=== PATIENT | female | born 1965 | race African-American/Black ===

== ENCOUNTER 2022-08-02 09:00 | Outpatient (REF) | payer OTHER, SELFPAY ==
[2022-08-02 10:56] LABS: Hematocrit 37.8 % (37.0-47.0); Hemoglobin 11.8 g/dl (12.0-16.0); Mean Corpuscular HGB Conc 31.2 g/dl (31.0-35.0); Mean Corpuscular Volume 89.6 fL (80.0-98.0); Platelet Count 139 X10*3/uL (160-400); Red Blood Count 4.22 X10*6/uL (4.20-5.50); Red Cell Distribution Width 12.8 % (11.0-16.0); White Blood Count 5.6 X10*3/uL (4.8-10.8)
[2022-08-02 11:28] LABS: Alanine Aminotransferase 15 U/L (0-31); Albumin Level 4.3 g/dL (3.5-5.0); Alkaline Phosphatase 88 U/L (39-117); Anion Gap 10 (12-20); Aspartate Amino Transferase 15 U/L (5-31); Bilirubin Total 0.7 mg/dL (0.0-1.0); Blood Urea Nitrogen 23 mg/dL (9-16); Calcium 9.1 mg/dL (8.4-10.2); Carbon Dioxide 29 mmol/L (22-29); Chloride 108 mmol/L (96-108); Cholesterol 219 mg/dL; Estimated Glomerular Filt Rate 24; Glucose Fasting 108 mg/dL (60-99); HDL Cholesterol 44 mg/dL; LDL Cholesterol Calculated 154 mg/dl; Potassium 4.1 mmol/L (3.3-5.1); Sodium 143 mmol/L (135-145); Total Protein 7.1 g/dL (6.5-8.0); Triglycerides 109 mg/dL
== END 2022-08-02 09:01 | disposition home or self-care (01) ==
LOC: HO.WFDLDS 09:00
PROVIDERS: Visit Provider Hospitalist
DX: Z00.00 Encounter for general adult medical examination without abnormal findings (principal)
CPT/HCPCS: 36415; 80053; 80061; 84443; 85027

== ENCOUNTER 2022-10-25 14:55 | Outpatient (AMB) | payer OTHER, SELFPAY ==
[2022-10-25 15:07] VITALS: BP 154/90; PULSE 74; RESP 12; TEMP 36.6; O2SAT 99
--- NOTE | 2022-10-25 15:07 | A.OFFPC_ITS ---
Vital Signs 10/25/22 15:07 10/25/22 16:03 Height 5 ft 5 in Weight 180 lb 6 oz BMI 30.0 BP 154/90 H 132/80 Blood Pressure Location Rt brachial Rt brachial Position Sitting Sitting Respiration 12 Pulse 74 Pulse Source Pulse Oximeter Temp 97.9 F Temp Source Temporal Artery Scan Pulse Oximetry (%) 99 Oxygen Delivery Method Room Air Intake Visit Reasons: follow up htn Pricing Lead Required: No Accompanied by: Self / Same As Patient Allergies No Known Allergies Allergy (Verified 10/25/22 15:21) Medication List - Last Reconciled 10/25/22 by Danielle Lopez CNP aspirin 81 mg PO DAILY blood pressure test kit-medium As directed carvedilol 25 mg PO BID 3 months lisinopril 5 mg PO BID Tobacco use date assessed: 08/02/22 Dental Screening Dental Screen Date: 10/25/22 Did you have a dental visit in the last 12 months?: No Did you have a dental problem in the last 6 months where you did not have access to dental care?: Yes HPI HPI Comments History of Present Illness Details 57-year-old female presents for hypertension follow-up She is on lisinopril and carvedilol which she notes she has been taking as prescribed She notes that she evaluated at [facility] ED on 10/13/2022 for right knee pain. She states she sustained the pain after knee twisted while climbing the stairs in her home. She was diagnosed with a ligament tear, was discharged home with instructions to take Tylenol and apply warm/cool compresses. 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 Jeremy Cam, Sunni Johnson, [place] and colleagues, with an educational mike from [employer]. Review of Systems Const Details: Const Denies chills, Denies fatigue, Denies fever(s), Denies headache(s) and Denies weakness ENT Denies change in vision, Denies dizziness, Denies headache(s), Denies hearing loss, Denies nasal congestion, Denies sinus pain, Denies sinus pressure and Denies sore throat Resp Denies cough, Denies dyspnea, Denies wheezing and Denies other (shortness of breath) Cardio Denies chest pain, Denies lightheadedness, Denies dyspnea and Denies other (palpitations) Neuro Denies dizziness, Denies headache(s), Denies numbness, Denies tingling and Denies weakness Musc Reports as per HPI Psych Denies anxiety, Denies depression, Denies memory?loss Endo Denies fatigue Aller/Immun Denies wheezing Physical exam (Primary Care) Vital Signs: Last Vital Signs Temp 97.9 F 10/25/22 15:07 Pulse 74 10/25/22 15:07 Resp 12 10/25/22 15:07 BP 154/90 H 10/25/22 15:07 Pulse Ox 99 10/25/22 15:07 Oxygen Delivery Method Room Air 10/25/22 15:07 BMI result Body Mass Index 30.0 Tobacco/Smoking Status: Tobacco use Status Tobacco use date assessed 08/02/22 10/25/22 15:15 Patient Tobacco Use Status Never used Tobacco 10/25/22 15:15 e-Cigarette/Vaping Use Never Used 10/25/22 15:15 Thrive Assessment: Date of Thrive Assessment Date Thrive assessed 06/07/22 10/25/22 15:15 Const Other: Const General: well developed; No acute distress Nutritional Appearance: well nourished Orientation/consciousness: patient oriented x3 HEENT Head: Yes normocephalic and Yes atraumatic Eyes General: appearance normal, both eyes and all related structures Pupils: Equal, round and reactive pupils present EOM: EOMs intact bilaterally Resp Effort & Inspection: normal respiratory effort Auscultation: clear to auscultation bilaterally Cardio Rate: regular rate Rhythm: regular rhythm Heart sounds: S1 normal heart sound present, S2 normal heart sound present, no gallops, no murmurs and no rubs Bruits: no abdominal aortic bruits and no carotid bruits Back/Spine/Pelvis Back: no CVA tenderness Cervical Spine: cervical ROM normal and No Cervical spine tenderness Thoracic/Lumbar Spine: thoraco-lumbar ROM normal, No pain with thoraco-lumbar ROM, No thoracic spinal tenderness and No lumbar spinal tenderness Extrem General: Yes normal to inspection, No edema and No calf tenderness Tenderness with palpation and flexion and extension of right knee Neuro General: patient oriented x3 and gait normal, no focal neuro deficit Cranial nerves: Yes Equal, round and reactive pupils present Psych Affect: normal affect Assessment and Plan Assessment & Plan (1) HTN, goal below 130/80: Code(s): I10 - Essential (primary) hypertension Plan: Resting blood pressure is 132/80, slightly above goal of less than 130/80 Continue to take carvedilol and lisinopril as prescribed Low-sodium diet encouraged Monitor blood pressure at least 3 times a week and reports blood pressure consistently above 130/80 Follow-up with PCP in 2 months or return sooner with symptoms or concerns Verbalized understanding and agreed with treatment plan. (2) Hypercholesterolemia: Code(s): E78.00 - Pure hypercholesterolemia, unspecified Plan: She had blood work done in July Her total cholesterol and LDL were slightly elevated, triglyceride and HDL were normal Her 10-year risk for ASCVD is 8.7% Advised to limit foods high in saturated fat and avoid foods high trans fat Routine exercise encouraged Will continue to monitor Follow-up with symptoms or concerns Verbalized understanding and agreed with treatment plan. (3) Right knee pain: Code(s): M25.561 - Pain in right knee Plan: She notes that she evaluated at [facility] ED on 10/13/2022 for right knee pain. She states she sustained the pain after knee twisted while climbing the stairs in her home. She was diagnosed with a ligament tear. Tenderness with palpation and flexion and extension of right knee Tylenol and warm/cool compresses as instructed PT referral made Follow-up with worsening or new symptoms Verbalized understanding and agreed with treatment plan (4) Abnormal laboratory test result: Code(s): R89.9 - Unspecified abnormal finding in specimens from other organs, systems and tissues Plan: BUN/creatinine and fasting glucose were elevated in July Elevated BUN and creatinine is likely due to kidney injury or dehydration CMP ordered Adequate hydration encouraged Advised to get fasting blood work done as soon as possible Will review lab results and make changes to her care plan if warranted Follow-up with PCP in 2 months or return sooner with symptoms or concerns Verbalized understanding and agreed with treatment plan. Orders: Orders Comprehensive [place]. Panel Fast Today R89.9 - Unspecified abnormal finding in specimens from other organs, systems and tissues PT Evaluation and Treatment Today M25.561 - Pain in right knee Coding Level of Care Code Est Pt Level 3 (61956) Diagnoses HTN, goal below 130/80 I10 Hypercholesterolemia E78.00 Right knee pain M25.561 Abnormal laboratory test result R89.9 Time Spent (min) 25
[2022-10-25 16:03] VITALS: BP 132/80
== END 2022-10-25 15:54 | disposition home or self-care (01) ==
PROVIDERS: Visit Provider Nurse Practitioner Family
DX: I10 Essential (primary) hypertension (principal); E78.00 Pure hypercholesterolemia, unspecified; M25.561 Pain in right knee; R89.9 Unspecified abnormal finding in specimens from other organs, systems and tissues
CPT/HCPCS: 99213

== ENCOUNTER 2023-01-15 15:22 | Outpatient (AMB) | payer OTHER, SELFPAY ==
--- NOTE | 2023-01-15 15:27 | MHC.PC.OV ---
Vital Signs 01/15/23 15:30 Height 5 ft 5 in Weight 179 lb 8 oz BMI 29.9 BP 148/80 H Blood Pressure Location Rt brachial Pulse 61 Pulse Source Pulse Oximeter Pulse Oximetry (%) 99 Oxygen Delivery Method Room Air Intake Visit Reasons: Follow up htn Intake Note: Patient is following up on hypertension today. Allergies No Known Allergies Allergy (Verified 01/15/23 15:31) Tobacco use date assessed: 01/15/23 Dental Screening Dental Screen Date: 01/15/23 Did you have a dental visit in the last 12 months?: No Did you have a dental problem in the last 6 months where you did not have access to dental care?: No Was dental information given to patient?: Yes HPI Follow up htn HPI Details Patient?presents?to?follow-up?hypertension. She?has?a?history?of?CVA?and?goal?is?less?than?130/80.??Blood?pressure?is?higher?than This?today. She?has been?prescribed?a?blood?pressure?monitor?but?has?not?picked?this?up. 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 Jeremy Cam, Sunni Johnson, [place] and colleagues, with an educational mike from [employer]. Review of Systems Const Denies chills, Denies fatigue, Denies fever(s), Denies headache(s) and Denies weakness Eyes Details: Vision?changes ENT Denies dizziness and Denies headache(s) Card Denies chest pain, Denies lightheadedness, Denies dyspnea and Denies other (Palpitations) Resp Denies cough, Denies dyspnea, Denies wheezing and Denies other ( shortness of breath) Musc Denies numbness and Denies tingling Neuro Denies dizziness, Denies headache(s), Denies numbness, Denies tingling, Denies paresthesias and Denies weakness Psych Denies anxiety and Denies depression Endo Denies fatigue Aller/Immun Denies wheezing Physical exam (Primary Care) Vital Signs: Last Vital Signs Pulse 61 01/15/23 15:30 BP 148/80 H 01/15/23 15:30 Pulse Ox 99 01/15/23 15:30 Oxygen Delivery Method Room Air 01/15/23 15:30 BMI result Body Mass Index 29.9 Tobacco/Smoking Status: Tobacco use Status Tobacco use date assessed 01/15/23 01/15/23 15:34 Patient Tobacco Use Status Never used Tobacco 01/15/23 15:29 e-Cigarette/Vaping Use Never Used 01/15/23 15:29 Thrive Assessment: Date of Thrive Assessment Date Thrive assessed 06/07/22 01/15/23 15:29 Const General: no acute distress and well developed Nutritional Appearance: well nourished Orientation/consciousness: patient oriented x3 HENMT Head: Yes normocephalic and Yes atraumatic Eyes General: appearance normal, both eyes and all related structures Pupils: Equal, round and reactive pupils present EOM: EOMs intact bilaterally Resp Effort & Inspection: normal respiratory effort Auscultation: clear to auscultation bilaterally Cardio Rate: regular rate Rhythm: regular rhythm Heart sounds: S1 normal heart sound present, S2 normal heart sound present, no gallops, no murmurs and no rubs Neuro General: patient oriented x3 and gait normal Cranial nerves: Yes Equal, round and reactive pupils present Psych Affect: normal affect Assessment and Plan Assessment & Plan (1) HTN, goal below 130/80: Code(s): I10 - Essential (primary) hypertension Plan: Hypertension?and?history?of?CVA.??Blood?pressure?is?too?high.??Goal?is?less?than?130/80 Increasing?lisinopril?and?continuing?carvedilol. She?has?not?picked?up?a?blood?pressure?monitor?and?I?refilled?her?script?and?printed?to?place?in?hand. (2) Hx of completed stroke: Code(s): Z86.73 - Personal history of transient ischemic attack (TIA), and cerebral infarction without residual deficits Plan: History?of?stroke. Controlled?blood?pressure Checking?lipids Continue?aspirin Orders: Orders Comprehensive [place]. Panel Fast Today Z00.00 - Encounter for general adult medical examination without abnormal findings Complete Blood Count Auto Diff Today Z00.00 - Encounter for general adult medical examination without abnormal findings Microalbumin, Random (w Creat) Today I10 - Essential (primary) hypertension UA and rflx microscopic Today Z00.00 - Encounter for general adult medical examination without abnormal findings TSH reflex Free T4 Today Z00.00 - Encounter for general adult medical examination without abnormal findings Lipid Panel Today Z00.00 - Encounter for general adult medical examination without abnormal findings Referrals Ophthalmology Referral H53.9 - Unspecified visual disturbance, I10 - Essential (primary) hypertension, Z86.73 - Personal history of transient ischemic attack (TIA), and cerebral infarction without residual deficits Medications: Changed From lisinopril hold for bp less than 100/50 5 mg PO BID 60 tabs 2RF I10 - Essential (primary) hypertension To lisinopril hold for bp less than 100/50 10 mg PO BID 180 tabs 2RF 90 days I10 - Essential (primary) hypertension Refilled blood pressure test kit-medium As directed 1 ea 0RF I10 - Essential (primary) hypertension blood pressure test kit-medium As directed 1 ea 0RF I10 - Essential (primary) hypertension Coding Level of Care Code Est Pt Level 3 (30037) Diagnoses HTN, goal below 130/80 I10 Hx of completed stroke Z86.73
[2023-01-15 15:30] VITALS: BP 148/80; PULSE 61; O2SAT 99; BMI 29.9
== END 2023-01-15 16:35 | disposition home or self-care (01) ==
PROVIDERS: PCP Hospitalist; Visit Provider Family Medicine
DX: I10 Essential (primary) hypertension (principal); Z86.73 Personal history of transient ischemic attack (TIA), and cerebral infarction without residual deficits
CPT/HCPCS: 99213

== ENCOUNTER 2023-02-28 13:49 | Outpatient (AMB) | payer OTHER, SELFPAY ==
--- NOTE | 2023-02-28 14:06 | A.OFFPC_ITS ---
Vital Signs 02/28/23 14:08 Height 5 ft 5 in Weight 178 lb BMI 29.6 BP 136/76 Blood Pressure Location Lt brachial Position Sitting Pulse 72 Pulse Source Pulse Oximeter Intake Visit Reasons: Extended Exam Intake Note: Patient is here for extended exam, and she was in [facility] on 02/15/2023 for stomach pains. Allergies No Known Allergies Allergy (Verified 02/28/23 14:09) Tobacco use date assessed: 02/28/23 HPI Extended Exam HPI Details 57 y/o female presents for a CPE with f/ u labs and health maintenance. No recent labs to review. Pt with hx of CVA had presented last office visit with increased blood pressure. Had continued carvedilol and increased lisinopril. Blood pressure today 136/76. She is on carvedilol 25mg b.i.d. and had been also put on hydralazine 25mg t.i.d. She has discontinued her lisinopril 10mg b.i.d. Re cent?emergency?department?presentation?on?02/15/2023?for?abdominal?pain.??Ultraso und?was?unremarkable?but?CT?abdomen?showed?enteritis with?low- grade?obstruction?secondary?to?this. She notes she is feeling better and has been eating better. 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 Jeremy Cam, Sunni Johnson, [place] and colleagues, with an educational mike from [employer]. Review of Systems Const Denies chills, Denies fatigue, Denies fever(s), Denies headache(s) and Denies weakness Eyes Denies change in vision ENT Denies dizziness, Denies headache(s), Denies hearing loss, Denies nasal congestion, Denies sinus pain, Denies sinus pressure and Denies sore throat Card Denies chest pain, Denies lightheadedness, Denies dyspnea and Denies other (palpitations) Resp Denies cough, Denies dyspnea and Denies wheezing GI Denies abdominal pain, Denies melena, Denies hematochezia, Denies change in bowel habits, Denies dyspepsia and Denies nausea Denies hematuria and Denies dysuria Musc Denies abnormal gait, Denies myalgias, Denies arthralgias, Denies numbness and Denies tingling Skin/Breast Denies rash, Denies unusual bruising and Denies wounds Neuro Denies abnormal gait, Denies dizziness, Denies headache(s), Denies memory loss, Denies numbness, Denies Sensory deficit (Neuro), Denies tingling and Denies weakness Psych Denies anxiety, Denies depression and Denies memory loss Endo Denies cold intolerance, Denies fatigue, Denies heat intolerance, Denies polydipsia and Denies polyuria Deepak/Lymph Denies easy bleeding and Denies easy bruising Aller/Immun Denies wheezing Physical exam (Primary Care) Vital Signs: Last Vital Signs Pulse 72 02/28/23 14:08 BP 136/76 02/28/23 14:08 BMI result Body Mass Index 29.6 Tobacco/Smoking Status: Tobacco use Status Tobacco use date assessed 02/28/23 02/28/23 14:15 Patient Tobacco Use Status Never used Tobacco 02/28/23 14:15 e-Cigarette/Vaping Use Never Used 02/28/23 14:15 Thrive Assessment: Date of Thrive Assessment Date Thrive assessed 06/07/22 02/28/23 14:15 Const General: no acute distress, well developed, alert and awake Nutritional Appearance: well nourished Orientation/consciousness: patient oriented x3 HENMT Head: Yes normocephalic and Yes atraumatic Ears: hearing grossly normal bilaterally and TM's normal bilaterally General nose exam: Normal external nose present and Normal nares present Mouth: Normal oral and palatal mucosa present and moist mucous membranes Teeth and gingiva: dentition normal Throat: Yes posterior oropharynx normal Eyes General: appearance normal, both eyes and all related structures Pupils: Equal, round and reactive pupils present and Pupil accommodation reflex normal EOM: EOMs intact bilaterally Neck Neck: Yes normal visual inspection, Yes no lymphadenopathy and Yes trachea midline Thyroid: Thyroid normal Carotids: no bruits Lymphatic: no lymphadenopathy noted Chest Chest palpation & inspection: normal inspection of the chest Resp Effort & Inspection: normal respiratory effort Auscultation: clear to auscultation bilaterally Cardio Rate: regular rate Rhythm: regular rhythm Heart sounds: S1 normal heart sound present, S2 normal heart sound present, no gallops, no murmurs and no rubs Bruits: no abdominal aortic bruits and no carotid bruits GI Palpation (GI): No Abdominal aortic bruit present, Soft to palpation, nontender, No hepatosplenomegaly present and No Rebound tenderness present Auscultation: normal bowel sounds General: Yes no CVA tenderness Back/Spine/Pelvis Back: no CVA tenderness Cervical Spine: cervical ROM normal and No Cervical spine tenderness Thoracic/Lumbar Spine: thoraco-lumbar ROM normal, No pain with thoraco-lumbar ROM, No thoracic spinal tenderness and No lumbar spinal tenderness Skin Lesions: no lesions Rashes: no rashes Trauma: no lacerations or abrasions Wounds: no wounds Nails: normal Neuro General: patient oriented x3 Cranial nerves: Yes Equal, round and reactive pupils present Cognition (Neuro): normal cognition Gait exam (Neuro): Normal gait present Motor exam (neuro): 5/5 motor strength present throughout Sensory Exam: No Sensory deficit (Neuro) Deep tendon reflexes (DTR's): Right patellar reflex intensity grade: 2+ and Left patellar reflex intensity grade: 2+ Extrem General: Yes normal to inspection and No edema Psych Appearance: grossly normal Affect: normal affect Attitude: cooperative Thought process: Normal thought process present Assessment and Plan Assessment & Plan (1) Adult general medical examination: Code(s): Z00.00 - Encounter for general adult medical examination without abnormal findings Plan: 57-year-old?female?presents?for?complete?physical?exam (2) HTN, goal below 130/80: Code(s): I10 - Essential (primary) hypertension Plan: Blood?pressure?is?fairly?well?controlled.??Goal?is?less?than?130/80 Patient?had?been?on?lisinopril?but?h as?renal?failure?and?recent?exacerbation?with?dehydration?during?hospital?admiss ion?for?enteritis. Lisinopril?was?discontinued?and?she?is?on?hydralazine?t.i.d. Continue?hydralazine If?renal?function? improves/stabilizes,?may?consider?a?small?dose?of?lisinopril?for?renal?protectio n (3) Hx of completed stroke: Code(s): Z86.73 - Personal history of transient ischemic attack (TIA), and cerebral infarction without residual deficits Plan: Stable (4) Abdominal pain: Code(s): R10.9 - Unspecified abdominal pain Plan: Recent?enteritis?and ileus Referred?to?Gastroenterology (5) Renal failure: Code(s): N19 - Unspecified kidney failure Plan: Check?labs Follow-up?with?nephrology (6) Screening for colon cancer: Code(s): Z12.11 - Encounter for screening for malignant neoplasm of colon Plan: Referred?to?GI (7) Breast cancer screening by mammogram: Code(s): Z12.31 - Encounter for screening mammogram for malignant neoplasm of breast Plan: Overdue?for?mammogram-ordered (8) Screening for cervical cancer: Code(s): Z12.4 - Encounter for screening for malignant neoplasm of cervix Plan: Overdue?for?Pap?smear-ordered (9) Vision changes: Code(s): H53.9 - Unspecified visual disturbance Plan: History?of?hypertension?and?CVA?with?some?comp laints?of?vision?changes?at?prior?visit. Had?referred?her?to?ophthalmology?but?the?wait?time?is?over?a?year. Referred?her?to?a?new?scrap carrier Orders: Orders MM tomosynthesis screening BI Today Z12.31 - Encounter for screening mammogram for malignant neoplasm of breast Referrals Ophthalmology Referral H53.9 - Unspecified visual disturbance, I10 - Essential (primary) hypertension, Z86.73 - Personal history of transient ischemic attack (TIA), and cerebral infarction without residual deficits Gastroenterology Referral K52.9 - Noninfective gastroenteritis and colitis, unspecified, Z12.11 - Encounter for screening for malignant neoplasm of colon PNEUMATIC [facility]ER Referral Z12.4 - Encounter for screening for malignant neoplasm of cervix Coding Level of Care Code Est Pt Level 3 (63727) Est Pt Prev Care 40-64y(96053) Diagnoses Adult general medical examination Z00.00 HTN, goal below 130/80 I10 Hx of completed stroke Z86.73 Abdominal pain R10.9 Renal failure N19 Screening for colon cancer Z12.11 Breast cancer screening by mammogram Z12.31 Screening for cervical cancer Z12.4 Vision changes H53.9
[2023-02-28 14:08] VITALS: BP 136/76; PULSE 72; BMI 29.6
== END 2023-02-28 14:47 | disposition home or self-care (01) ==
PROVIDERS: PCP Family Medicine; Visit Provider Family Medicine
DX: Z00.00 Encounter for general adult medical examination without abnormal findings (principal); I10 Essential (primary) hypertension; Z86.73 Personal history of transient ischemic attack (TIA), and cerebral infarction without residual deficits; R10.9 Unspecified abdominal pain; N19 Unspecified kidney failure; Z12.11 Encounter for screening for malignant neoplasm of colon; Z12.31 Encounter for screening mammogram for malignant neoplasm of breast; Z12.4 Encounter for screening for malignant neoplasm of cervix; H53.9 Unspecified visual disturbance
CPT/HCPCS: 99396

== ENCOUNTER 2023-03-02 09:18 | Outpatient (REF) | payer OTHER, SELFPAY ==
[2023-03-02 11:24] LABS: Hemoglobin 11.7 g/dl (12.0-16.0); Imm Gran Abs Auto 0.01 X10*3/uL (0.00-0.03); Imm Gran Pct Auto 0.2 % (0.0-0.4); Red Cell Distribution Width 12.4 % (11.0-16.0); SCAN SMEAR FLAG 1
[2023-03-02 11:26] LABS: Basophils Absolute Auto 0.1 X10*3/uL (0.0-0.2); Basophils Percent Auto 1.3 % (0-2); Eosinophils Absolute Auto 0.2 X10*3/uL (0.0-0.4); Eosinophils Percent Auto 4.8 % (0-4); Hematocrit 36.8 % (37.0-47.0); Lymphocytes Absolute Auto 1.7 X10*3/uL (1.2-4.9); Lymphocytes Percent Auto 36.1 % (20-40); Mean Corpuscular HGB Conc 31.8 g/dl (31.0-35.0); Mean Corpuscular Hemoglobin 28.5 pg (27.0-33.0); Mean Corpuscular Volume 89.8 fL (80.0-98.0); Monocytes Absolute Auto 0.3 X10*3/uL (0.1-1.2); Monocytes Percent Auto 5.9 % (2-11); Neutrophils Absolute Auto 2.5 x10*3/uL (2.0-8.3); Neutrophils Percent Auto 51.7 % (45-73); PLT CLUMP 1
[2023-03-02 11:27] LABS: MANUAL DIFF FLAG SCAN; PLT ABN DIST 1; White Blood Count 4.8 X10*3/uL (4.8-10.8)
[2023-03-02 11:28] LABS: Appearance Urine Clear; Color Urine Yellow; Glucose Urine UA Negative (Negative); Leukocyte Esterase Urine Small (1+) (Negative); Nitrite Urine Negative (Negative); Specific Gravity - Urine 1.015 (1.005-1.025); UMIC TRIGGER UA YES; Urine Blood Negative (Negative); Urine Ketones Negative (Negative); Urine Protein Negative (Neg-Trace)
[2023-03-02 11:40] LABS: Bacteria Urine None Seen (None Seen); Hyaline Casts Urine 0-2 /LPF (0-2); RBC Urine 0-2 /HPF (0-2); Squamous Epithelial Cell Urine 0-2 /HPF (0-2); WBC Urine 0-5 /HPF (0-5)
[2023-03-02 11:44] LABS: Platelet Count 150 X10*3/uL (160-400); SLIDE REVIEW VERIFIED
[2023-03-02 12:09] LABS: Creatinine Urine 163.83 mg/dL; Microalbum/Creatinine Ratio Ur 26.8 ug/mg cr (<30)
[2023-03-02 12:13] LABS: Alanine Aminotransferase 58 U/L (0-31); Albumin Level 4.2 g/dL (3.5-5.0); Alkaline Phosphatase 105 U/L (39-117); Anion Gap 11 (12-20); Aspartate Amino Transferase 45 U/L (5-31); Bilirubin Total 0.7 mg/dL (0.0-1.0); Blood Urea Nitrogen 26 mg/dL (9-16); Calcium 9.3 mg/dL (8.4-10.2); Carbon Dioxide 29 mmol/L (22-29); Chloride 106 mmol/L (96-108); Cholesterol 199 mg/dL (<200); Estimated Glomerular Filt Rate 25; Glucose Fasting 109 mg/dL (60-99); HDL Cholesterol 45 mg/dL (>40); LDL Cholesterol Calculated 133 mg/dL (<100); Potassium 4.5 mmol/L (3.3-5.1); Sodium 141 mmol/L (135-145); TSH reflex Free T4 1.34 uIU/mL (0.32-4.0); Total Protein 7.5 g/dL (6.5-8.0); Triglycerides 109 mg/dL (<150)
== END 2023-03-02 09:19 | disposition home or self-care (01) ==
LOC: HO.WFDLDS 09:18
PROVIDERS: Visit Provider Family Medicine
DX: Z00.00 Encounter for general adult medical examination without abnormal findings (principal); I10 Essential (primary) hypertension
CPT/HCPCS: 36415; 80053; 80061; 81001; 82043; 82570; 84443; 85025

== ENCOUNTER 2023-09-11 11:50 | Outpatient (AMB) | payer OTHER, SELFPAY ==
[2023-09-11 12:44] VITALS: BP 136/78; BMI 29.1
--- NOTE | 2023-09-11 12:44 | A.OFFVIS_ITS ---
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 No complaints. Last Pap/HPV was many years ago, the patient is status post hysterectomy for myomas and AUB with no history of abnormal Pap smear Last Mammogram was in 2019 Last Colonoscopy was in 2019, the recommendation according to the patient needs to repeat in 10 years, no records available [facility] Medical History Arthritis of both knees Hypotension Surgical History (Updated 09/11/23 @ 12:57 by Rojelio Cabrales MD) H/O: hysterectomy No pertinent past surgical history Family History Father Hypertension No family history of mental disorder Mother Hypertension No family history of mental disorder Social History Household Members: Family Household Members Other:: Sister Housing: House Alcohol intake: never Patient Tobacco Use Status: Never used Tobacco e-Cigarette/Vaping Use: Never Used service: No Current occupational status: employed 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 unsure date) Review of Systems Const All systems reviewed & are unremarkable except as noted in HPI and below Card Reports as per HPI and Reports no additional complaints Resp Reports as per HPI and Reports no additional complaints GI Reports as per HPI and Reports no additional complaints Reports as per HPI Physical Exam Vital Signs: Last Vital Signs BP 136/78 09/11/23 12:44 BMI result Body Mass Index 29.1 Const General: cooperative, healthy appearing and comfortable General: Yes bladder normal to palpation External Female Exam: No lesion Speculum Exam - Vagina: normal appearance of the vagina, normal vaginal discharge and not erythematous Speculum Exam - Cervix: Cervix absent Bimanual exam- vagina & uterus: bladder normal to palpation and uterus absent Bimanual Exam- Adnexa, other: Other (No masses detected) Assessment & Plan Assessment & Plan (1) Well woman exam: Code(s): Z01.419 - Encounter for gynecological examination (general) (routine) without abnormal findings Category: Medical Plan: Co testing but indicated, the patient is status post hysterectomy with no Pap history of cervical dysplasia Counseled the patient about the recommended dietary allowance of 1200 mg of Calcium & 600 IU of vitamin D. Mammogram ordered. The patient was instructed to perform monthly self-breast exams and schedule annual exam in a year. All questions answered and the patient verbalized understanding. Orders: Orders MM tomosynthesis screening BI Today Z12.31 - Encounter for screening mammogram for malignant neoplasm of breast Coding Level of Care Code New Pt Prev Care 40-64y(90341) Diagnoses Well woman exam Z01.419
== END 2023-09-11 13:03 | disposition home or self-care (01) ==
PROVIDERS: PCP Family Medicine; Visit Provider Obstetrics & Gynecology
DX: Z01.419 Encounter for gynecological examination (general) (routine) without abnormal findings (principal)
CPT/HCPCS: 99386

== ENCOUNTER → 2023-09-11 11:50 | Outpatient (BNVA) | payer OTHER, SELFPAY | PROVIDERS: PCP Family Medicine; Visit Provider Obstetrics & Gynecology ==

== ENCOUNTER 2024-08-15 09:01 | Outpatient (REF) | payer OTHER, SELFPAY ==
--- OUTSIDE RECORDS SUMMARY | 2024-08-15 09:29 | XMS_ITS | Patient Health Record ---
Author Organization [facility] Address [address] [place] [address] Care Team Providers Care Cloth Painter Name Role Phone Jsesica JEAN, [facility] Primary Care Provider Beatrice Duffy Unavailable [phone] Allergies No Known Allergies Reason For Referral No Information Medications Medication SIG (Take, Route, Frequency, Duration) Notes Start Date End Date Status amLODIPine Besylate 10 MG 1 tablet Orall y Once a day for 30 Unknown Aspirin 81 81 MG 1 tablet Orally Once a day Unknown Atorvastatin Calcium 10 MG 1 tablet Orally Once a day Unknown [facility] Pain Relief 500 MG 2 tablets as need ed Orally every 6 hrs 10 day Rx 07/01/2018 Unknown Metoprolol Succinate ER 25 MG 1 tablet Orally Once a day Unknown Social History Tobacco Use: Social History Observation Description Date Details (start date - stop date) Never Smoker NA - NA Tobacco Use: Question Answer Notes Status: Never tobacco user Problems Problem Type SNOMED Code ICD Code Onset Dates Problem Status W/U Status Risk Notes Problem 559282761 Chronic kidney disease (CKD) stage G4/A1, severely decreased glomerular filtration rate (GFR) between 15-29 mL/min/1.73 square meter and albuminuria creatinine ratio less than 30 mg/g (N18.4) Active confirmed Problem 18095564 Hypertensive chronic kidney disease with stage 1 through stage 4 chronic kidney disease, or unspecified chronic kidney disease (I12.9) Active confirmed Problem 43960102 Hypertension, unspecified type (I10) Active confirmed Plan Of Treatment Pending Test Test Name Order Date BMP (BASIC METABOL PANEL) 05/29/2018 Urine MICROALBUMIN RANDOM 05/29/2018 Microscopic Urinalysis 05/29/2018 CBC WITH PLATELET 11/18/2018 US Renal Kidney W Bladder 05/29/2018 Future Test Test Name Order Date BMP (BASIC METABOL PANEL) 02/18/2019 PHOSPHORUS 02/18/2019 PTH 02/18/2019 CBC WITH PLATELET 02/18/2019 Insurance Providers Payer Name Payer Address Payer Phone Subscriber Number Group Number Insured Name Patient Relationship to Insured Coverage Start Date Coverage End Date [facility] [address] [address] [place] [phone] [id number] Juan C Tobar Self - patient is the insured Medical (General) History Medical History History ICD Code Renal failure, unspecified chronicity N1 9 Hypertension, unspecified type I10 Cerebrovascular accident (CVA), unspecif ied mechanism I63.9 Surgical History Surgery Date(Month/Year) Hysterectomy 2010
--- OUTSIDE RECORDS SUMMARY | 2024-08-15 09:29 | XMS_ITS | Encounter Summary ---
Author Organization [facility] Address [address] [place] [address] Phone Care Team Providers Care Processing Talc And Borate Supervisor Name Role Phone Unavailable Primary Care Provider Unavailabl e Encounter Details Date Type Department Care Team (Late st Contact Info) Description 03/02/2023 Documentation Only [facility] [address] [place] [address] Arthur Doshi MD [address] [place] [address] Social History Tobacco Use Types Packs/Day Years Used Date Smoking Tobacco: Never Assessed Comments Unknown Sex and Gender Information Value Date Recorded Sex Assigned at Not on file Legal Sex Female 8:21 AM EST Gender Identity Not on file Sexual Orientation Not on file documented as of this encounter Plan of Treatment Not on file documented as of this encounter Visit Diagnoses Not on filedocumented in this encounter
--- OUTSIDE RECORDS SUMMARY | 2024-08-15 09:29 | XMS_ITS ---
Author Name [facility] Organization Unknown Care Team Organization Name Specialty Phone Email Start Date End [facility] JOYCE METZGER Primary Care 08/06/2024
--- OUTSIDE RECORDS SUMMARY | 2024-08-15 09:29 | XMS_ITS | Clinical Summary ---
Author Organization [facility] Address [address] [place] [address] Phone Care Team Providers Care Account Collector Name Role Phone Unavailable Primary Care Provider Unavailabl e Allergies No known active allergies Medications spironolactone (Aldactone) 25 MG tablet Take 1 tablet (25 mg total) by mouth 1 (one) time each day 30 tablet 11 03/05/2023 Active aspirin (ST OPAL) 81 MG EC tablet Take 81 mg by mouth 1 (one) time each day Active atorvastatin (LIPITOR) 20 MG tablet Take 20 mg by mouth at bed time 04/23/2023 Active lisinopril 10 MG tablet 05/11/2023 Active carvedilol (COREG) 25 MG tablet Take 1 tablet (25 mg total) by mouth in the morning and 1 tablet (25 mg total) in the evening. Take with meals. 60 tablet 3 05/28/2024 Active hydrALAZINE 25 MG tablet Take 1 tablet (25 mg total) by mouth in the morning and 1 tablet (25 mg total) in the evening and 1 tablet (25 mg total) before bedtime. 90 tablet 5 05/28/2024 Active Active Problems Problem Noted Date Diagnosed Date Stage 3b chronic kidney disease 03/02/2023 Hypertension 03/02/2023 Encounters Date Type Department Care Team Description 08/14/2024 Refill [facility] [address] [place] [address] Arthur Doshi MD 05/28/2024 Refill [facility] [place], [address] [place] [address] Arthur Doshi MD from Last 3 Months Immunizations Immunization Administration Dates Next Due Influenza, Quadrivalent, Preservative Free 01/18 Social History Tobacco Use Types Packs/Day Years Used Date Smoking Tobacco: Never Assessed Comments Unknown Sex and Gender Information Value Date Recorded Sex Assigned at Not on file Legal Sex Female 8:21 AM EST Gender Identity Not on file Sexual Orientation Not on file Plan of Treatment Health Maintenance Due Date Last Done Comments Breast Cancer Screening 1963 Pneumococcal Vaccine: 50+ Ye ars (1 of 2 - PCV) 1982 Colorectal Cancer Screening: Annual FOBT 2012 Colorectal Cancer Screening: Colonoscopy 2012 Colorectal Cancer Screening: Sigmoidoscopy 2012 Influenza Vaccine (Season Ended) 2024 01/19/20 21 Hepatitis B Vaccine Aged Out No longe r eligible based on patient's age to complete this topic
--- OUTSIDE RECORDS SUMMARY | 2024-08-15 09:30 | XMS_ITS | Encounter Summary ---
Author Organization [facility] Address [address] [place] [address] Phone Care Team Providers Care Fresh Foods Cake Decorator Name Role Phone Unavailable Primary Care Provider Unavailabl e Reason for Visit * Reason Comments Med Refill Encounter Details Date Type Department Care Team (Late st Contact Info) Description 08/14/2024 Refill [facility] [place], [address] [place] [address] Arthur Doshi MD [address] [place] [address] Social History Tobacco Use Types [...]
== END 2024-08-15 09:02 | disposition home or self-care (01) ==
LOC: HO.MAMMO 09:01
PROVIDERS: PCP Family Medicine; Visit Provider Family Medicine
DX: Z12.31 Encounter for screening mammogram for malignant neoplasm of breast (principal)
CPT/HCPCS: 77063; 77067

== ENCOUNTER → 2024-08-15 09:30 | Outpatient (BNV) | payer OTHER, SELFPAY | PROVIDERS: PCP Family Medicine; Visit Provider Internal Medicine | DX: Z12.31 Encounter for screening mammogram for malignant neoplasm of breast (principal) | CPT/HCPCS: 77063; 77067 ==

== ENCOUNTER 2024-09-15 10:59 | Outpatient (AMB) | payer OTHER, SELFPAY ==
--- NOTE | 2024-09-15 11:04 | A.OFFPC_ITS ---
Vital Signs 09/15/24 11:11 09/15/24 12:01 Height 5 ft 5 in Weight 180 lb BMI 30.0 BP 166/98 H 162/98 H Blood Pressure Location Lt brachial Position Sitting Pulse 76 Pulse Source Pulse Oximeter Temp 97.8 F Temp Source Temporal Artery Scan Pulse Oximetry (%) 97 Oxygen Delivery Method Room Air Intake Visit Reasons: cpe Intake Note: Juan C presents in the office today for her annual physical Allergies No Known Allergies Allergy (Verified 09/15/24 11:09) Tobacco use date assessed: 09/15/24 Dental Screening Dental Screen Date: 09/15/24 Did you have a dental visit in the last 12 months?: No Did you have a dental problem in the last 6 months where you did not have access to dental care?: No Was dental information given to patient?: Yes HPI HPI Comments History of Present Illness Details This is a 59-year-old female with a past medical history of chronic kidney disease, renal failure, hypertension, obesity, hyperlipidemia, CVA presenting for a physical exam. It is my 1st time seeing this patient. The patient's blood pressure today is 162/98. History of CVA. She is on atorvastatin and aspirin. She denies vision change, dizziness, numbness, tingling, headaches, chest pain or shortness of breath. Patient says her blood pressure is this high because she ran out of carvedilol week ago, and she could not get a refill because she had not been seen at the [facility] for over a year. She has a cocoa room operator, Dr. Doshi, but she is also overdue to follow up there. She says her last visit was about 6 months ago, and she is supposed to be seen every 3 months. Upon chart review from labs in 2022 her baseline creatinine is around 2 and GFR 25. She has a heart murmur on exam. Denies chest pain, shortness of breath or pedal edema. Patient is concerned she may have sleep apnea. Endorses daytime fatigue, non restorative sleep and waking up at night sometimes gasping for breath. She has been told that she snores heavily. She does not drink alcohol or smoke. Goes to bed at 08:00 and wakes up at 17:00. Endorses bilateral knee pain for 3-4 months. She also has intermittent bilateral knee swelling associated with the pain. It is in the inside of the knees. It is worse when she goes upstairs. Taking Tylenol temporarily alleviate symptoms. No history of trauma. Overdue for eye and dental exams. Patient says she saw OBGYN for her annual and Pap in 2024. Overdue for colonoscopy. She had a mammogram in August which was abnormal, and she has bilateral breast ultrasound scheduled this month. Denies breast pain or palpable masses. ROS: Constitutional: No unexplained weight loss, fever, chills, fatigue or night sweats. Eyes: No vision changes, blurry vision, double vision, eye pain, eye redness, eye discharge. ENT: No hearing loss, sneezing, congestion, runny nose or sore throat. Respiratory: No shortness of breath, cough or sputum production. Cardiovascular: No chest pain, chest pressure or chest discomfort. No p alpitations or pedal edema. Gastrointestinal: No anorexia, nausea, vomiting or diarrhea. No abdominal pain or blood in stool. Genitourinary: No dysuria, hematuria, urinary frequency. Neurologic: No headache, dizziness, syncope, unilateral weakness, ataxia, numbness or tingling in the extremities. Musculoskeletal: No muscle pain or back pain. See HPI. Hematologic/Lymphatics: No bleeding or bruising. No painful lymph nodes. Skin: No rash Endocrine: No cold or heat intolerance. No polyuria or polydipsia. Psychiatric: No depression or anxiety. No SI/HI. Physical exam: Constitutional: Alert, in no distress. Head: Normocephalic. Eyes: Pupils are equal, round and reactive to light. Extraocular muscles intact. Ear, Nose and Throat: Canals clear. TMs normal. Normal nasal mucosa. No nasal discharge. No oral lesions. Neck: Supple, Full range of motion. No lymphadenopathy. No palpable thyroid masses. Respiratory: Clear to auscultation. Breast: Patient declined residency director. No palpable masses or adenopathy bilaterally. Cardiovascular: S1 S2 regular. 2/6 systolic murmur. No carotid bruits. Gastrointestinal: Abdomen soft, non-tender, non-distended. Normal bowel sounds. No palpable masses. Neurologic: No focal neurological deficits. Symmetric patellar reflexes. Moves all extremities spontaneously. Sensation intact bilaterally. Skin: No rashes Knees: Bilateral knee crepitus. Full range of motion. Bilateral tenderness of the anteromedial compartments of the knees with mild edema on the left. No laxity. Normal gait. No warmth or redness. Extremities: Warm and well perfused. No clubbing, cyanosis or edema. Intact peripheral pulses bilaterally. Psychiatric: Normal mood and affect [facility] Medical History (Updated 09/15/24 @ 13:53 by FRANKLIN Flower) Abnormal mammogram Daytime somnolence Non-restorative sleep CKD stage 4 secondary to hypertension Heart murmur Routine physical examination Chronic kidney disease Bilateral knee pain Arthritis of both knees Hypotension Surgical History (Updated 09/11/23 @ 12:57 by Rojelio Cabrales MD) H/O: hysterectomy No pertinent past surgical history Family History Father Hypertension No family history of mental disorder Mother Hypertension No family history of mental disorder Social History (Updated 09/15/24 @ 11:[address] MA) Household Members: Family Household Members Other:: Sister Housing: House Alcohol intake: never Patient Tobacco Use Status: Never used Tobacco e-Cigarette/Vaping Use: Never Used Second Hand Smoke Exposure: No service: No Current occupational status: employed 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 Jeremy Cam, Sunni Johnson, [place] and colleagues, with an educational mike from [employer]. Physical exam (Primary Care) Vital Signs: Last Vital Signs Temp 97.8 F 09/15/24 11:11 Pulse 76 09/15/24 11:11 BP 162/98 H 09/15/24 12:01 Pulse Ox 97 09/15/24 11:11 Oxygen Delivery Method Room Air 09/15/24 11:11 BMI result Body Mass Index 30.0 Tobacco/Smoking Status: Tobacco use Status Tobacco use date assessed 09/15/24 09/15/24 11:17 Patient Tobacco Use Status Never used Tobacco 09/15/24 11:10 e-Cigarette/Vaping Use Never Used 09/15/24 11:10 Thrive Assessment: Date of Thrive Assessment Date Thrive assessed 06/07/22 09/15/24 11:07 Office Procedures EKG Details: EKG shows normal sinus rhythm with 70 beats per minute and left ventricular hypertrophy with repolarization abnormality. Reviewed with Dr. Rivero. [id number], Complete Coding Level of Care Code Est Pt Level 4 (73852) Est Pt Prev Care 40-64y(28035) Diagnoses Daytime somnolence R40.0 CKD stage 4 secondary to hypertension I12.9; N18.4 Non-restorative sleep G47.8 Heart murmur R01.1 Routine physical examination Z00.00 Bilateral knee pain M25.561; M25.562 Abnormal mammogram R92.8 HTN, goal below 130/80 I10 CPT Codes EKG - CPT: 63440-Uwgkqwgzzksopxicm, Complete ([id number]) Assessment & Plan Assessment & Plan (1) Daytime somnolence: Code(s): R40.0 - Somnolence Category: Medical Plan: Symptoms are concerning for sleep apnea. Sleep study ordered. Avoid sleeping supine. Continue to avoid alcohol. (2) CKD stage 4 secondary to hypertension: Code(s): I12.9 - Hypertensive chronic kidney disease with stage 1 through stage 4 chronic kidney disease, or unspecified chronic kidney disease; N18.4 - Chronic kidney disease, stage 4 (severe) Category: Medical Plan: Referred back to Nephrology urgently. Avoid nephrotoxic medications. Check renal function. (3) Non-restorative sleep: Code(s): G47.8 - Other sleep disorders Category: Medical (4) Heart murmur: Code(s): R01.1 - Cardiac murmur, unspecified Category: Medical Plan: Proceed with echocardiogram and we will consider referral to Cardiology once this is resulted. (5) Routine physical examination: Code(s): Z00.00 - Encounter for general adult medical examination without abnormal findings Category: Medical Plan: Patient is seen today for a routine physical. As part of this visit we reviewed the following issues, which are considered and essential part of preventative health in this age group: - Breast Cancer screening - Annual Caustic Loader exam - Screening for colon cancer - Cholesterol screening - Osteoporosis prevention including calcium/vitamin D intake, weight bearing exe rcise & smoking cessation - Nutritional and exercise counseling - Counseling of injury prevention including fire prevention, smoke alarms and seat belt usage - Screening for depression - Education about skin cancer - Recommendations about immunizations - Recommendation of an eye exam - Screening for substance abuse - Genetic cancer risk screening (6) Bilateral knee pain: Code(s): M25.561 - Pain in right knee; M25.562 - Pain in left knee Category: Medical Plan: Check x-rays and ordered Lyme serology. (7) Abnormal mammogram: Code(s): R92.8 - Other abnormal and inconclusive findings on diagnostic imaging of breast Category: Medical Plan: Proceed with additional imaging recommended by mammography. This is scheduled this month. (8) HTN, goal below 130/80: Code(s): I10 - Essential (primary) hypertension Category: Medical Plan: Restart carvedilol. Refills sent to pharmacy. Avoid caffeine. Follow low- sodium diet. Referred back to Nephrology. I also discussed the importance of her taking her medication consistently, and if she is going to run out of the medication again she should call us or her Nephrology office to speak with the provider. She was overdue for an appointment, but I would refill her medication if an appointment is booked so she does not run out in the meantime. Plan Return in 2 weeks for a blood pressure check. Orders: Orders Comprehensive Met. Panel Today D64.9 - Anemia, unspecified, E78.00 - Pure hypercholesterolemia, unspecified, N18.9 - Chronic kidney disease, unspecified, R74.8 - Abnormal levels of other serum enzymes, Z00.00 - Encounter for general adult medical examination without abnormal findings Lipid Panel Today D64.9 - Anemia, unspecified, E78.00 - Pure hypercholesterolemia, unspecified, N18.9 - Chronic kidney disease, unspecified, R74.8 - Abnormal levels of other serum enzymes, Z00.00 - Encounter for general adult medical examination without abnormal findings Lyme IgG/IgM w/reflex to WB Today M25.561 - Pain in right knee, M25.562 - Pain in left knee CA echo transthoracic complete Today I10 - Essential (primary) hypertension, R01.1 - Cardiac murmur, unspecified RT home sleep study Today G47.8 - Other sleep disorders, R40.0 - Somnolence XR Knee Kash 3V Today M25.561 - Pain in right knee, M25.562 - Pain in left knee Vitamin D 25-OH (D2 and D3) Today D64.9 - Anemia, unspecified, E78.00 - Pure hypercholesterolemia, unspecified, N18.9 - Chronic kidney disease, unspecified, R74.8 - Abnormal levels of other serum enzymes, Z00.00 - Encounter for general adult medical examination without abnormal findings Complete Blood Count no Diff Today D64.9 - Anemia, unspecified, E78.00 - Pure hypercholesterolemia, unspecified, N18.9 - Chronic kidney disease, unspecified, R74.8 - Abnormal levels of other serum enzymes, Z00.00 - Encounter for general adult medical examination without abnormal findings Microalbumin, Random (w Creat) Today D64.9 - Anemia, unspecified, E11.9 - Type 2 diabetes mellitus without complications, E78.00 - Pure hypercholesterolemia, unspecified, N18.9 - Chronic kidney disease, unspecified, R74.8 - Abnormal levels of other serum enzymes, Z00.00 - Encounter for general adult medical exam ination without abnormal findings TSH reflex Free T4 Today D64.9 - Anemia, unspecified, E78.00 - Pure hypercholesterolemia, unspecified, N18.9 - Chronic kidney disease, unspecified, R74.8 - Abnormal levels of other serum enzymes, Z00.00 - Encounter for general adult medical examination without abnormal findings Vitamin B12 Today Z91.89 - Other specified personal risk factors, not elsewhere classified IRON PROFILE Today D64.9 - Anemia, unspecified AMB EKG-In Office Today R01.1 - Cardiac murmur, unspecified Referrals Nephrology Referral I10 - Essential (primary) hypertension, I12.9 - Hypertensive chronic kidney disease with stage 1 through stage 4 chronic kidney disease, or unspecified chronic kidney disease, N18.4 - Chronic kidney disease, stage 4 (severe) Gastroenterology Referral Z12.11 - Encounter for screening for malignant neoplasm of colon Medications: Refilled carvedilol 25 mg PO BID 3 months 180 tabs 1RF atorvastatin 20 mg PO BEDTIME 90 days 90 tabs 1RF Patient Instructions: Please think about getting an updated tetanus immunization, Shingrix vaccine and the pneumonia vaccine. An annual seasonal influenza vaccine is also recommended.
[2024-09-15 11:11] VITALS: BP 166/98; PULSE 76; TEMP 36.6; O2SAT 97
[2024-09-15 12:01] VITALS: BP 162/98
--- OUTSIDE RECORDS SUMMARY | 2024-09-15 12:15 | XMS_ITS | Encounter Summary ---
Author Organization [facility] Address [address] [place] [address] Phone Care Team Providers Care Old Coin Dealer Name Role Phone Unavailable Primary Care Provider Unavailabl e Encounter Details Date Type Department Care Team (Late st Contact Info) Description 03/02/2023 Documentation Only [facility] [address] [place] [address] Arthur Doshi MD [address] [place] [address] Social History Tobacco Use Types [...]
== END 2024-09-15 12:13 | disposition home or self-care (01) ==
LOC: HO.HMCFM 11:02
PROVIDERS: PCP Family Medicine; Visit Provider Physician Assistant Medical
DX: R40.0 Somnolence (principal); I12.9 Hypertensive chronic kidney disease with stage 1 through stage 4 chronic kidney disease, or unspecified chronic kidney disease; N18.4 Chronic kidney disease, stage 4 (severe); G47.8 Other sleep disorders; R01.1 Cardiac murmur, unspecified; Z00.00 Encounter for general adult medical examination without abnormal findings; M25.561 Pain in right knee; M25.562 Pain in left knee; R92.8 Other abnormal and inconclusive findings on diagnostic imaging of breast; I10 Essential (primary) hypertension

== ENCOUNTER → 2024-09-15 10:59 | Outpatient (BNVA) | payer OTHER, SELFPAY | PROVIDERS: PCP Family Medicine; Visit Provider Physician Assistant Medical | DX: Z00.00 Encounter for general adult medical examination without abnormal findings (principal); E66.9 Obesity, unspecified; E78.5 Hyperlipidemia, unspecified; I12.9 Hypertensive chronic kidney disease with stage 1 through stage 4 chronic kidney disease, or unspecified chronic kidney disease; N18.4 Chronic kidney disease, stage 4 (severe); G47.8 Other sleep disorders; R01.1 Cardiac murmur, unspecified; M25.561 Pain in right knee; M25.562 Pain in left knee; R92.8 Other abnormal and inconclusive findings on diagnostic imaging of breast; D63.1 Anemia in chronic kidney disease; E78.00 Pure hypercholesterolemia, unspecified; R74.8 Abnormal levels of other serum enzymes; Z86.73 Personal history of transient ischemic attack (TIA), and cerebral infarction without residual deficits; Z68.30 Body mass index [BMI] 30.0-30.9, adult | CPT/HCPCS: 36415; 80053; 80061; 82043; 82306; 82570; 82607; 83540; 84443; 85027; 86618; 93005; 99212; 99396 ==

== ENCOUNTER 2024-09-15 12:25 | Outpatient (REF) | payer OTHER, SELFPAY ==
[2024-09-15 14:38] LABS: Hematocrit 37.1 % (37.0-47.0); Hemoglobin 12.3 g/dl (12.0-16.0); Mean Corpuscular HGB Conc 33.2 g/dl (31.0-35.0); Mean Corpuscular Hemoglobin 28.5 pg (27.0-33.0); Mean Corpuscular Volume 86.1 fL (80.0-98.0); Mean Platelet Volume 13.1 fL (9.4-12.3); PLT CLUMP 1; Red Blood Count 4.31 X10*6/uL (4.20-5.50); Red Cell Distribution Width 13.3 % (11.0-16.0)
[2024-09-15 14:47] LABS: Alanine Aminotransferase 23 U/L (0-31); Albumin Level 4.4 g/dL (3.5-5.0); Alkaline Phosphatase 120 U/L (39-117); Anion Gap 12 (12-20); Aspartate Amino Transferase 23 U/L (5-31); Bilirubin Total 0.5 mg/dL (0.0-1.0); Blood Urea Nitrogen 28 mg/dL (9-16); Calcium 9.5 mg/dL (8.4-10.2); Carbon Dioxide 27 mmol/L (22-29); Chloride 109 mmol/L (96-108); Cholesterol 214 mg/dL (<200); Estimated Glomerular Filt Rate 24; Glucose Random 90 mg/dL (60-115); HDL Cholesterol 43 mg/dL (>40); Iron 76 mcg/dL (30-160); LDL Cholesterol Calculated 139 mg/dL (<100); Percent Iron Saturation 27 % (15-50); Potassium 3.6 mmol/L (3.3-5.1); Sodium 144 mmol/L (135-145); Total Iron Binding Capacity 285 mcg/dL (228-428); Total Protein 7.8 g/dL (6.5-8.0); Triglycerides 160 mg/dL (<150); Unsaturated Iron Binding 209 ug/dL
[2024-09-15 14:55] LABS: Platelet Count 162 X10*3/uL (160-400)
[2024-09-15 14:58] LABS: Creatinine Urine 168.22 mg/dL
[2024-09-15 15:06] LABS: Vitamin B12 513 pg/mL (200-900)
[2024-09-15 15:10] LABS: TSH reflex Free T4 1.35 uIU/mL (0.32-4.0)
[2024-09-15 16:02] LABS: Microalbum/Creatinine Ratio Ur 409.5 ug/mg cr (<30)
[2024-09-16 05:48] LABS: Lyme Abs Screen <0.90 index
[2024-09-18 13:14] LABS: Vitamin D 25-OH, D2 <4 ng/mL; Vitamin D 25-OH, D3 17 ng/mL; Vitamin D 25-OH, Total 17 ng/mL (30-100)
== END 2024-09-15 12:26 | disposition home or self-care (01) ==
LOC: HO.WFDLDS 12:25
PROVIDERS: Visit Provider Physician Assistant Medical
DX: Z13.89 Encounter for screening for other disorder (principal)
CPT/HCPCS: 36415; 80053; 80061; 82043; 82306; 82570; 82607; 83540; 84443; 85027; 86617; 86618

== ENCOUNTER 2024-11-11 08:42 | Outpatient (REF) | payer OTHER, SELFPAY ==
--- NOTE | ~2024-11-11 | XR_ITS ---
EXAMINATION: XR KNEE 3 VIEWS BILATERAL HISTORY: bilateral knee pain COMPARISON: There are no prior studies available for comparison. FINDINGS: Standing AP views of both knees and additional lateral and sunrise patellar views of the bilateral knees are submitted. Osseous mineralization is normal. There is no fracture or dislocation. There is mild degenerative change of the medial compartment of the left knee and the patellofemoral compartment of the right knee with osteophyte formation. A calcification adjacent to the medial femoral condyle of the right knee may be related to the medial collateral ligament. There is no joint effusion. XR/XR Knee Kash 3V IMPRESSION: 1. Mild degenerative change of the medial compartment of the left knee and the patellofemoral compartment of the right knee. 2. Probable calcification of the origin of the medial collateral ligament of the right knee. Electronically signed by: Jeremy Andrew MD 11/11/2024 10:52 AM EDT
--- NOTE | ~2024-11-11 | US_ITS ---
EXAMINATIONS: 1. MM DIAGNOSTIC DIGITAL BREAST TOMOSYNTHESIS, BILATERAL 2. Targeted ultrasound of the left breast CLINICAL INFORMATION: Callback from screening for bilateral findings: Right: Oval mass in the anterior to middle depth on the CC view Left: Oval mass in the upper outer quadrant anterior depth and asymmetry in the retroareolar medial depth on the CC view. COMPARISON: Comparison made to multiple prior, most recent screening from August 15, 2024, and most remote bilateral diagnostic mammogram June 14, 2018 at outside facility. TECHNIQUE: Digital breast tomosynthesis is performed in full field ML 90 degrees view along with computer-aided detection (CAD). Synthesized 2D images are generated from the tomosynthesis. Spot compression tomosynthesis images were also obtained. FINDINGS: BREAST COMPOSITION: There are scattered areas of fibroglandular density (ACR BI-RADS breast composition Category b). RIGHT BREAST: Previously described 0.6 cm oval mass persists in the medial breast on the CC view at about 4 cm from the nipple (spot CC 28/54) . The size and appearance are similar to prior studies as far back as 2019 and can be considered benign finding. LEFT BREAST: - Approximately 0.6 cm mass in the upper-outer quadrant at about 3-4 cm from the nipple persists on today's images (ML90 degrees 9/15 and spot CC 15/54). Targeted ultrasound was performed at the location of the mammographic finding. The survey shows a 0.5 x 0.4 x 0.4 cm simple appearing cyst at 2:00 at 4 cm from the nipple. No internal vascularity demonstrated with color Doppler evaluation. - Approximately 0.5 cm oval mass is identified in the central breast/12 o'clock position at about 6 to 7 cm from the nipple (ML 90 degrees 27/50, CC 25/54). Targeted ultrasound was performed at the location of the mammographic finding. The survey shows a 0.4 x 0.3 x 0.3 cm hypoechoic lesion at 12 o'clock position 7 cm from the nipple, which could represent a complicated cyst or solid mass. US/US breast LT limited mamm only IMPRESSION: RIGHT BREAST: Oval mass, stable from 2019. Benign, no mammographic evidence of malignancy. Normal interval follow-up is recommended in 12 months from the original date. LEFT BREAST: 1. Simple cyst at 2:00 at 4 cm from the nipple. Benign finding. No dedicated imaging follow-up is needed. 2. Complicated cyst or solid mass at 12:00 at 7 cm from the nipple, correlating with the mammographic finding. Probably benign. A 6-month follow-up mammogram and ultrasound is recommended. ASSESSMENT: BI-RADS 3 - Probably benign finding(s) - 6 month follow-up suggested RECOMMENDATION: 6 Month F/U Results were provided to the patient at time of visit by the technologist. This patient's information was entered into a reminder system with a target due date for their next mammogram. Electronically signed by: Dee Zabala MD 11/11/2024 10:27 AM EDT
--- OUTSIDE RECORDS SUMMARY | 2024-11-11 09:00 | XMS_ITS | Encounter Summary ---
Author Organization [facility] Address [address] [place] [address] Phone Care Team Providers Care Box Car Checker Name Role Phone Unavailable Primary Care Provider Unavailabl e Encounter Details Date Type Department Care Team (Late st Contact Info) Description 03/02/2023 Documentation Only [facility] [address] [place] [address] Arthur Doshi MD [address] [place] [address] Social History Tobacco Use Types [...]
--- OUTSIDE RECORDS SUMMARY | 2024-11-11 09:00 | XMS_ITS | Patient Health Record ---
Author Organization [facility] enter Address [address] [place], [place] [address] Care Team Providers Care Cobol Programmer Name Role Phone Eliza Carcamo MD Primary Care Provider Allergies No Known Allergies Reason For Referral No Information Medications Medication SIG (Take, Route, Frequency, Duration) Notes Start Date End Date Status hydrALAZINE 50 mg 1 tab(s) orally 4 times a day; Duration: 90 days 11/08/2019 Active amLODIPine 10 mg 1 tab(s) orally once a day; Duration: 90 days Active carvedilol 25 mg 1 tab(s) orally 2 times a day; Duration: 90 days 01/20/2021 Active ergocalciferol 50,000 intl units 1 cap(s) orally once a week; Duration: 30 day(s) 09/27/2021 Active aspirin 81 mg 1 tab(s) orally once a day; Duration: 90 days RX Written BY: Constance Lopez RX Sent BY: Tomeka Linares CphT Active Immunizations Vaccine Route Administration Date Status Comme nts Pneumococcal (PPV23) Adult IM Intramuscular 01/20/2019 Adm inistered Influenza (19y+) (Fluzone) IM Intramuscular 01/20/2019 Adm inistered Influenza (19y+) (Flucelvax) IM Intramuscular 01/09/2020 Administered COVID-19 (Pfizer Monoval.) #1 (>11y) Unknown 07/24/2020 Administered COVID-19 (Pfizer Monoval.) #2 (>11y) Unknown 08/14/2020 Administered Tdap (19y+) (Adacel) IM Intramuscular 09/27/2020 Administe red COVID-19 (Moderna Monoval.) (>17y) Low Dose Booster IM Intramuscular 09/26/2021 Administered Problems Problem Type SNOMED Code ICD Code Onset Dates Problem Status W/U Status Risk Notes 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 Will order PTH, Ca, phos, magnesium and celiac disease. Problem Stroke (248546903) Stroke (I63.9) Active confir med Stable Problem Gingivitis (60534078) Gingivitis (K05.10) Active confirmed Resolved. Problem Left knee pain (312638554096715) Left knee pain (M25.562) Active confirmed sport cream, tylenol as needed/prescr ibed. Problem Obesity (286993077) Obesity (E66.9) Active conf irmed Problem Hyperlipidemia (08169004) Hyperlipidemia (E78.5) Active confirmed Increasing Atorvastatin to 40mg daily. Problem Renal failure (64527625) Renal failure (N19) Active confirmed Being followed with specialist. Dr. Nick, the insurance loss adjuster. Check labs today. Problem Hypertension (48485284) HTN (hypertension) (I10) Active confirmed Refill all three medications. Patient is adviced to take all medications. If has any fever, chills, chest pain, sob, headache, weakness, numbness, tingling to call 911. She also needs to get to new PCP near where she lives now as soone as possible. Problem hypercholesterolemi a (disorder) (07657840) Hypercholesterem ia (E78.00) Active confirmed repeat lipid profile today. Plan Of Treatment No Information Medical (General) History Medical History History ICD Code Hypertension stroke April of 2017. Affecting her ri ght eye only Surgical History Surgery Date(Month/Year) Total Hysterectomy-in [place] 2010 Hospitalization History Reason Date(Month/Year) Stroke 04/2017
--- OUTSIDE RECORDS SUMMARY | 2024-11-11 09:00 | XMS_ITS ---
Author Name [facility] Organization Unknown Care Team Organization Name Specialty Phone Email Start Date End [facility] JOYCE METZGER Primary Care 08/06/2024 10/21/2024
--- OUTSIDE RECORDS SUMMARY | 2024-11-11 09:00 | XMS_ITS | Patient Health Record ---
Author Organization [facility] Address [address] [place] [address] Care Team Providers Care Trash Collector Name Role Phone Jessica JEAN, [facility] Primary Care Provider Beatrice Duffy Unavailable [phone] Allergies No Known Allergies Reason For Referral No Information Medications Medication SIG (Take, Route, Frequency, Duration) Notes Start Date End Date Status amLODIPine Besylate 10 MG Tablet 1 tablet Orally Once a day; Duration: 30 Unknown Aspirin 81 81 MG Tablet Delayed Release 1 tablet Orally Once a day Unknown Atorvastatin Calcium 10 MG Tablet 1 tablet Orally Once a day Unknown [facility] Pain Relief 500 MG Tablet 2 tablets as needed Orally every 6 hrs 10 day Rx 07/01/2018 Unknown Metoprolol Succinate ER 25 MG Tablet Extended Release 24 Hour 1 tablet Orally Once a day Unknown Social History Tobacco Use: Social History Observation Description Date Details (start date - stop date) Never Smoker NA - NA Social History Tobacco Use: Social Info Question Answer Notes Tobacco Use: Date tobacco status assessed 04/20/2021 Status: Never tobacco user Tobacco Exposure Secondhand smoke exposure Additional Details Category Social Info Options Details Miscellaneous: 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 Problems Problem Type SNOMED Code ICD Code Onset Dates Problem Status W/U Status Risk Notes Problem Chronic kidney disease stage 4 (474118058) Chronic kidney disease (CKD) stage G4/A1, severely decreased glomerular filtration rate (GFR) between 15-29 mL/min/1.73 square meter and albuminuria creatinine ratio less than 30 mg/g (N18.4) Active confirmed Problem Chronic kidney disease due to hypertension (742902218031537 ) Hypertensive chronic kidney disease with stage 1 through stage 4 chronic kidney disease, or unspecified chronic kidney disease (I12.9) Active confirmed Problem Essential hypertension (16041862) Hypertension, unspecified type (I10) Active confirmed Plan [...] Insured Coverage Start Date Coverage End Date [facility] [address] [address] [place] [id number] Juan C Tobar Self - patient is the insured Medical (General) History Medical History History ICD Code Renal failure, unspecified chronicity N1 9 Hypertension, unspecified type I10 Cerebrovascular accident (CVA), unspecif ied mechanism I63.9 Surgical History Surgery Date(Month/Year) Hysterectomy 2010
== END 2024-11-11 08:43 | disposition home or self-care (01) ==
LOC: HO.MAMMO 08:42
PROVIDERS: Absent Provider Physician Assistant Medical; PCP Family Medicine; Visit Provider Family Medicine
DX: M25.561 Pain in right knee (principal); M25.562 Pain in left knee; N63.21 Unspecified lump in the left breast, upper outer quadrant; Z12.31 Encounter for screening mammogram for malignant neoplasm of breast
CPT/HCPCS: 73562; 76642; 77062; 77066

== ENCOUNTER → 2024-11-11 09:00 | Outpatient (BNV) | payer OTHER, SELFPAY | PROVIDERS: Absent Provider Physician Assistant Medical; PCP Family Medicine; Visit Provider Radiology Body Imaging | DX: N60.02 Solitary cyst of left breast (principal); R92.323 Mammographic fibroglandular density, bilateral breasts; M17.0 Bilateral primary osteoarthritis of knee | CPT/HCPCS: 73562; 76642; 77062; 77066 ==

== ENCOUNTER → 2024-12-09 14:33 | Outpatient (REF) | payer OTHER, SELFPAY ==
--- OUTSIDE RECORDS SUMMARY | 2024-12-09 15:31 | XMS_ITS | Clinical Summary ---
Author Organization [facility] Address [address] [place] [address] Phone Care Team Providers Care Frozen Pie Maker Name Role Phone Unavailable Primary Care Provider [...] Active lisinopril 10 MG tablet 05/11/2023 Active hydrALAZINE 25 MG tablet Take 1 tablet (25 mg total) by mouth in the morning and 1 tablet (25 mg total) in the evening and 1 tablet (25 mg total) before bedtime. 90 tablet 5 05/28/2024 Active carvedilol (COREG) 25 MG tablet Take 1 tablet (25 mg total) by mouth in the morning and 1 tablet (25 mg total) in the evening. Take with meals. 180 tablet 3 08/20/2024 Active Active Problems Problem Noted Date Diagnosed Date Stage 3b chronic kidney disease 03/02/2023 Hypertension 03/02/2023 Encounters Date Type Department Care Team Description 11/26/2024 Documentation Only [facility] [place], [address] [place] [address] Josie Bynum from Last 3 Months Immunizations Immunization Administration Dates Next Due Influenza, Quadrivalent, Preservative Free 01/18 Social History Tobacco Use Types Packs/Day Years Used Date Smoking Tobacco: Never Assessed Comments Unknown Sex and Gender Information Value Date Recorded Sex Assigned at Not on file Legal Sex Female 8:21 AM EST Gender Identity Not on file Sexual Orientation Not on file Plan of Treatment Upcoming Encounters Date Type Department Care Team (Late st Contact Info) Description 02/02/2025 4:00 PM EDT Office Visit [facility] [place], [address] [place] [address] Arthur Doshi MD [address] [facility] [place] [address] Health Maintenance Due Date Last Done Comments Breast Cancer Screening 1965 Colorectal Cancer Screening: Annual FOBT 2012 Colorectal Cancer Screening: Colonoscopy 2012 Colorectal Cancer Screening: Sigmoidoscopy 2012 Pneumococcal Vaccine: 50+ Years (2 of 2 - PCV) 01/21/2020 01/20/2019 Influenza Vaccine (#1) 2024 1, 01/09/2020, 01/20/2019 Pneumococcal Vaccine: Peds ( 0 to 5 Years) and At-Risk Patients (6 to 49 Years) Discontinued 01/20/2019 Hepatitis B Vaccine Aged Out No longe r eligible based on patient's age to complete this topic
--- OUTSIDE RECORDS SUMMARY | 2024-12-09 15:31 | XMS_ITS | Encounter Summary ---
Author Organization [facility] Address [address] [place] [address] Phone Care Team Providers Care Director State Pharmacy Name Role Phone Unavailable Primary Care Provider Unavailabl e Encounter Details Date Type Department Care Team (Late st Contact Info) Description 11/26/2024 Documentation Only [facility] [address] [place] [address] Josie Bynum [address] [place] [address] Social History Tobacco Use Types Packs/Day Years Used Date Smoking Tobacco: Never Assessed Comments Unknown Sex and Gender Information Value Date Recorded Sex Assigned at Not on file Legal Sex Female 8:21 AM EST Gender Identity Not on file Sexual Orientation Not on file documented as of this encounter Plan of Treatment Upcoming Encounters Date Type Department Care Team (Late st Contact Info) Description 02/02/2025 4:00 PM EDT Office Visit [facility] [address] [place] [address] Arthur Doshi MD [address] [place] [address] [place] [phone] documented as of this encounter Visit Diagnoses Not on filedocumented in this encounter
--- OUTSIDE RECORDS SUMMARY | 2024-12-09 15:31 | XMS_ITS | Encounter Summary ---
Author Organization [facility] Address [address] [place] [address] Phone Care Team Providers Care Teasel Setter Name Role Phone Unavailable Primary Care Provider Unavailabl e Encounter Details Date Type Department Care Team (Late st Contact Info) Description 03/02/2023 Documentation Only [facility] [address] [place] [address] Arthur Doshi MD [address] [facility] [place] [address] Social History Tobacco Use Types [...] Visit [facility] [address] [place] [address] Arthur Doshi MD [address] [facility] [place] [address] documented as of this encounter Visit Diagnoses Not on filedocumented in this encounter
--- OUTSIDE RECORDS SUMMARY | 2024-12-09 15:31 | XMS_ITS | Patient Health Record ---
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 Will order PTH, Ca, phos, magnesium and celiac disease. Problem Stroke (739489371) Stroke (I63.9) Active confir med Stable Problem Gingivitis (67895637) Gingivitis (K05.10) Active confirmed Resolved. Problem Left knee pain (573690328759681) Left knee pain (M25.562) Active confirmed sport cream, tylenol as needed/prescr ibed. Problem Obesity (504478719) Obesity (E66.9) Active conf irmed Problem Hyperlipidemia (96426367) Hyperlipidemia (E78.5) Active confirmed Increasing Atorvastatin to 40mg daily. Problem Renal failure (32995879) Renal failure (N19) Active confirmed Being followed with specialist. Dr. Nick, the instructor hairspring. Check labs today. Problem Hypertension (28905298) HTN (hypertension) (I10) Active confirmed Refill all three medications. Patient is adviced to take all medications. If has any fever, chills, chest pain, sob, headache, weakness, numbness, tingling to call 911. She also needs to get to new PCP near where she lives now as soone as possible. Problem hypercholesterolemi a (disorder) (10685119) Hypercholesterem ia (E78.00) Active confirmed repeat lipid profile today. Plan Of Treatment No Information Medical (General) History Medical History History ICD Code Hypertension stroke April of 2017. Affecting her ri ght eye only Surgical History Surgery Date(Month/Year) Total Hysterectomy-in [place] 2010 Hospitalization History Reason Date(Month/Year) Stroke 04/2017
--- OUTSIDE RECORDS SUMMARY | 2024-12-09 15:32 | XMS_ITS | Encounter Summary ---
Author Organization [facility] Address [address] [place] [address] Phone Care Team Providers Care Monotyper Name Role Phone Unavailable Primary Care Provider Unavailabl e Reason for Visit * Reason Comments Med Refill Encounter Details Date Type Department Care Team (Late st Contact Info) Description 08/14/2024 Refill [facility] [address] [place] [address] Arthur Doshi MD [address] [place] [address] [place] [address] Social History Tobacco Use Types [...] Visit [facility] [address] [place] [address] Arthur Doshi MD [address] [facility] [place] [address] documented as of this encounter Visit Diagnoses Not on filedocumented in this encounter
--- OUTSIDE RECORDS SUMMARY | 2024-12-09 15:32 | XMS_ITS | Patient Health Record ---
Author Organization [facility] Address [address] [place] [address] Care Team Providers Care Media Buyer Name Role Phone Jessica JEAN, Juhi Primary Care Provider Beatrice Duffy Unavailable [phone] Allergies No Known Allergies Reason For Referral [...] Notes Problem Chronic kidney disease stage 4 (046438626) Chronic kidney disease (CKD) stage G4/A1, severely decreased glomerular filtration rate (GFR) between 15-29 mL/min/1.73 square meter and albuminuria creatinine ratio less than 30 mg/g (N18.4) Active confirmed Problem Chronic kidney disease due to hypertension (420708724373619 ) Hypertensive chronic kidney disease with stage 1 through stage 4 chronic kidney disease, or unspecified chronic kidney disease (I12.9) Active confirmed Problem Essential hypertension (69339529) Hypertension, unspecified type (I10) Active confirmed Plan [...] Insured Coverage Start Date Coverage End Date [facility] [address] [address] [facility] [place] [id number] Juan C Tobar Self - patient is the insured Medical (General) History Medical History History ICD Code Renal failure, unspecified chronicity N1 9 Hypertension, unspecified type I10 Cerebrovascular accident (CVA), unspecif ied mechanism I63.9 Surgical History Surgery Date(Month/Year) Hysterectomy 2010
== END ==
LOC: HO.SL 14:33
PROVIDERS: PCP Family Medicine; Visit Provider Physician Assistant Medical
DX: G47.33 Obstructive sleep apnea (adult) (pediatric) (principal); G47.8 Other sleep disorders; R40.0 Somnolence
CPT/HCPCS: 95806

== ENCOUNTER → 2024-12-09 14:48 | Outpatient (BNV) | payer OTHER, SELFPAY | PROVIDERS: PCP Family Medicine; Visit Provider Internal Medicine | DX: G47.33 Obstructive sleep apnea (adult) (pediatric) (principal) | CPT/HCPCS: 95806 ==

== ENCOUNTER → 2025-01-05 07:48 | Outpatient (REF) | payer OTHER, SELFPAY ==
--- OUTSIDE RECORDS SUMMARY | 2025-01-05 07:51 | XMS_ITS | Clinical Summary ---
Author Organization [facility] Address [address] [place] [address] Phone Care Team Providers Care Tieing Machine Operator Name Role Phone Unavailable Primary Care Provider [...] Only [facility] [place], [address] [place] [place] [address] Josie Bynum from Last 3 [...] Visit [facility] [place], [address] [place] [address] Arthur Doshi MD [address] [facility] [place] [phone] Health Maintenance Due Date Last Done Comments [...]
--- OUTSIDE RECORDS SUMMARY | 2025-01-05 07:51 | XMS_ITS | Encounter Summary ---
Author Organization [facility] Address [address] [place] [address] Phone Care Team Providers Care Senior It Recruiter Name Role Phone Unavailable Primary Care Provider Unavailabl e Encounter Details Date Type Department Care Team (Late st Contact Info) Description 11/26/2024 Documentation Only [facility] [address] [place] [address] Josie Bynum [address] [place] [address] Social History Tobacco Use Types [...] Visit [facility] [address] [place] [address] Arthur Doshi MD [address] [place] [address] [place] [phone] documented as of this encounter Visit Diagnoses Not on filedocumented in this encounter
--- OUTSIDE RECORDS SUMMARY | 2025-01-05 07:51 | XMS_ITS | Encounter Summary ---
Author Organization [facility] Address [address] [place] [address] Phone Care Team Providers Care Data Collection Specialist Name Role Phone Unavailable Primary Care Provider Unavailabl e Encounter Details Date Type Department Care Team (Late st Contact Info) Description 03/02/2023 Documentation Only [facility] [address] [place] [address] Arthur Doshi MD [address] [facility] [place] [address] Social History Tobacco Use Types [...] Visit [facility] [address] [place] [place] [address] Arthur Doshi MD [address] [facility] [place] [address] documented as of this encounter Visit Diagnoses Not on filedocumented in this encounter
--- NOTE | 2025-01-05 07:52 | CA_ITS ---
Transthoracic Echocardiogram Patient (Last, First, Middle): Juan C Tobar, Gender: Female Date of : 1965 Age: 59 Procedure Date: 01/05/2025 Procedure Type: Transthoracic Echocardiogram Location: OP Height: 167. cm Weight: 84.82 kg BSA: 1.94 m2 Heart Rate: 57 bpm BP: 180 / 100 mmHg Medical Laboratory Technicians: ISABELLA Referring MD: Grecia REID Symptoms: R01.1 - Cardiac murmur, unspecified Study Quality: Adequate ECG Rhythm: Sinus Conclusions: - The left ventricular systolic function is normal. The calculated ejection fraction is 59% by biplane method. - Severe focal hypertrophy of the basal septum with a maximum thickness of about 2 cm. - No obvious valvular pathology seen on this study. Findings Left Ventricle Normal left ventricular cavity size. There is mildly increased left ventricular wall thickness. The left ventricular systolic function is normal. The calculated ejection fraction is 59% by biplane method. There is no evidence of regional wall motion abnormalities. Evidence suggests grade I (mild) diastolic dysfunction. Severe focal hypertrophy of the basal septum with a maximum thickness of about 2 cm. Right Ventricle Normal right ventricular cavity size and systolic function. Atria The left atrium is mildly dilated. The right atrium is normal in size. Aortic Valve There is a normal trileaflet aortic valve. There is no aortic valve stenosis. There is no aortic valve regurgitation. Mitral Valve The mitral valve appears normal. There is no mitral valve regurgitation. There is no mitral valve stenosis. Pulmonic Valve The pulmonic valve is likely normal. Tricuspid Valve Normal tricuspid valve structure. There is no tricuspid valve regurgitation. There is no evidence of pulmonary hypertension. Great Vessels The asc aorta is normal in size. Small plaque is seen in the sino tubular ridge. Venous The inferior vena cava is normal in size and collapses greater than 50% with inspiration. Pericardium/Pleural There is no evidence of pericardial effusion. Prior Study Comparison No prior study available for comparison. Recommendations, Care & Conclusions No obvious valvular pathology seen on this study. Measurements 2D Linear Measurements IVSd: 1.86 0.6-0.9/0.6-1.0 cm LVIDd: 3.75 3.9-5.3/4.2-5.9 cm LVIDd Index: 1.93 2.4-3.2/2.2-3.1 cm/m2 LVIDs: 2.10 2.0-3.6 cm LVPWd: 1.36 0.7-1.1 cm LA Diam: 3.60 2.7-3.8/3.0-4.0 cm LAIDs Index: 1.86 1.5-2.3 cm/m2 LV Mass: 297.31 67-162/88-224 g LV Mass Index: 153.25 43-95/49-115 g/m2 LVOT Diam: 2.00 3.0+(-)1.3 cm 2D Systolic Function EF 4C: 60.60 >55% EF 2C: 56.10 >55% EF BiP: 58.60 >55% Mitral Valve MV Pk E: 0.68 MV PK A: 1.02 MV Decel Time: 351.00 E/A: 0.70 E'Lateral: 5.77 E'Medial: 3.70 E/E' Med: 18.40 E/E' Lat: 11.80 PHT: 103.00 MVA PHT: 2.14 Decel Sampson: 1.94 Aortic Valve AoV Pk Mk: 1.28 AoV Mn Mk: 0.97 AoV VTI: 0.32 AoV Pk Grad: 7.00 Aov Mn Grad: 4.00 JUSTIN Cont.VTI: 2.81 LVOT LVOT Pk Mk: 1.20 LVOT Mn Mk: 0.91 LVOT VTI: 0.28 LVOT Pk Grad: 6.00 LVOT Mn Grad: 4.00 LVOT Diam: 2.00 LVOT Area: 3.14 Diastolic Function MV Pk E: 0.68 MV Pk A: 1.02 E/A: 0.70 E'Medial: 3.70 E/E' Med: 18.40 E' Laterial: 5.77 E/E' Lat: 11.80 Right Ventricle TAPSE (mm): 23.50 TVS' Mk: 10.00 Tricuspid Valve TR Pk Mk: 2.13 TR Pk Grad: 18.00 RA Press: 3.00 RVSP: 21.00 Great Vessels Aorta Sinus of Valsalva: 3.10 2.0-3.5 cm Ao Asc: 3.50 2.1-3.4 cm Ao Arch: 2.70 Pulmonary Valve PV Pk Mk: 0.90 Peak PV Grad: 3.00 Updated in Other Vendor System with Status of Final Shane Ford MD electronically signed on 01/05/2025 12:38:37 PM with status of Final
--- OUTSIDE RECORDS SUMMARY | 2025-01-05 07:52 | XMS_ITS | Patient Health Record ---
Author Organization [facility] Address [address] [place] [address] Care Team Providers Care Rural Route Mail Carrier Name Role Phone Jessica JEAN, [facility] Primary Care Provider Beatrice Duffy Unavailable [phone] Allergies No Known Allergies Reason For Referral [...] Notes Problem Chronic kidney disease stage 4 (709464042) Chronic kidney disease (CKD) stage G4/A1, severely decreased glomerular filtration rate (GFR) between 15-29 mL/min/1.73 square meter and albuminuria creatinine ratio less than 30 mg/g (N18.4) Active confirmed Problem Chronic kidney disease due to hypertension ([id number] ) Hypertensive chronic kidney disease with stage 1 through stage 4 chronic kidney disease, or unspecified chronic kidney disease (I12.9) Active confirmed Problem Essential hypertension (86509339) Hypertension, unspecified type (I10) Active confirmed Plan [...] Coverage Start Date Coverage End Date [facility] [address] [address] [facility] [place] [address] [id number] Juan C Tobar Self - patient is the insured Medical (General) History Medical History History ICD Code Renal failure, unspecified chronicity N1 9 Hypertension, unspecified type I10 Cerebrovascular accident (CVA), unspecif ied mechanism I63.9 Surgical History Surgery Date(Month/Year) Hysterectomy 2010
--- OUTSIDE RECORDS SUMMARY | 2025-01-05 07:52 | XMS_ITS | Encounter Summary ---
Author Organization [facility] Address [address] [place] [address] Phone Care Team Providers Care Solar Pv Installer Name Role Phone Unavailable Primary Care Provider Unavailabl e Reason for Visit * Reason Comments Med Refill Encounter Details Date Type Department Care Team (Late st Contact Info) Description 08/14/2024 Refill [facility] [address] [place] [address] Arthur Doshi MD [address] [place] [address] [place] [address] Social History Tobacco Use Types [...] Visit [facility] [address] [place] [address] Arthur Doshi MD [address] [facility] [place] [address] documented as of this encounter Visit Diagnoses Not on filedocumented in this encounter
== END ==
LOC: HO.CARD 07:48
PROVIDERS: PCP Family Medicine; Visit Provider Physician Assistant Medical
DX: R01.1 Cardiac murmur, unspecified (principal); I10 Essential (primary) hypertension
CPT/HCPCS: 93306

== ENCOUNTER → 2025-01-05 07:52 | Outpatient (BNV) | payer OTHER, SELFPAY | PROVIDERS: PCP Family Medicine; Visit Provider Internal Medicine | DX: I42.2 Other hypertrophic cardiomyopathy (principal) | CPT/HCPCS: 93306 ==

== ENCOUNTER 2025-01-13 08:31 | Outpatient (AMB) | payer OTHER, SELFPAY ==
--- NOTE | 2025-01-13 08:34 | A.OFFVIS_ITS ---
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 Patient was referred by [facility] 11/14/24 at their visit she discussed that both of her knees hurt. At today's visit she states that for the past two years she has had knee pain that radiates behind the knee. She added that the pain only occurs when walking up the stairs, standing for longer periods of time. She reports no numbness or tingling. She states that her symptoms have gotten somewhat worse in spite of a home exercise program. She has tried Tylenol and anti-inflammatory medicines which gave her mild relief. Allergies No Known Allergies Allergy (Verified 01/13/25 08:41) Medication List - Last Reconciled 01/13/25 by Randall Pete MD amlodipine 5 mg PO DAILY 90 days aspirin 81 mg PO DAILY atorvastatin 20 mg PO BEDTIME 90 days blood pressure test kit-medium As directed carvedilol 25 mg PO BID 3 months cholecalciferol (vitamin D3) 50 mcg PO DAILY 3 months [facility] Medical History (Updated 01/06/25 @ 17:30 by FRANKLIN Flower) Cardiac hypertrophy Obstructive sleep apnea Abnormal mammogram Daytime somnolence Non-restorative sleep CKD stage 4 secondary to hypertension Heart murmur Routine physical examination Chronic kidney disease Bilateral knee pain Arthritis of both knees Hypotension Surgical History (Updated 09/11/23 @ 12:57 by Rojelio Cabrales MD) H/O: hysterectomy No pertinent past surgical history Family History Father Hypertension No family history of mental disorder Mother Hypertension No family history of mental disorder Social History (Updated 09/15/24 @ 11:[address] MA) Household Members: Family Household Members Other:: Sister Housing: House Alcohol intake: never Patient Tobacco Use Status: Never used Tobacco e-Cigarette/Vaping Use: Never Used Second Hand Smoke Exposure: No service: No Current occupational status: employed 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 Cognitive needs: No Hearing needs: No Vision needs: Yes Female Reproductive History Menstrual Age of Menarche: 13 Physical Exam Vital Signs: BMI result Body Mass Index 30.0 Const Other: Well-nourished well-developed very friendly female awake alert and oriented x3 in no acute distress Extrem Other: Bilateral lower extremity examination shows good capillary refill, no skin lesions noted, normal sensation light touch Bilateral knee examination shows minimal effusions, mild crepitus with range of motion, tenderness along her medial joint lines, positive Daniel's test, no instability Results Reviewed Results Reviewed: X-rays of the patient's bilateral knee show mild diffuse joint space narrowing, no acute bony abnormalities Assessment & Plan Assessment & Plan (1) Bilateral knee pain: Code(s): M25.561 - Pain in right knee; M25.562 - Pain in left knee Category: Medical Plan Ms. Tobar presents with bilateral knee pains and mechanical symptoms, left greater than right, due to early degenerative joint disease as well as possible medial meniscus tearing. At this point the patient's symptoms are tolerable to her. She will continue with her activity modification. She will follow up with me on an as-needed basis should her symptoms worsen in any way. Feel free to call me at any time should questions regarding her orthopedic management arise. I spent 21 minutes in reviewing the patient's records and imaging studies, seeing the patient and documenting in the medical record. Coding Level of Care Code New Pt Level 3 (93469) Complex EM visit Add On G2211 Diagnoses Bilateral knee pain M25.561; M25.562
--- OUTSIDE RECORDS SUMMARY | 2025-01-13 08:50 | XMS_ITS | Encounter Summary ---
Author Organization [facility] Address [address] [place] [address] Phone Care Team Providers Care Fish Cutting Machine Operator Name Role Phone Unavailable Primary Care Provider Unavailabl e Encounter Details Date Type Department Care Team (Late st Contact Info) Description 11/26/2024 Documentation Only [facility] [address] [place] [address] Josie Bynum [address] [place] [address] Social History Tobacco Use Types [...] Visit [facility] [address] [place] [address] Arthur Doshi MD [address] [place] [address] [place] [id number] documented as of this encounter Visit Diagnoses Not on filedocumented in this encounter
--- OUTSIDE RECORDS SUMMARY | 2025-01-13 08:50 | XMS_ITS | Clinical Summary ---
Author Organization [facility] Address [address] [place] [address] Phone Care Team Providers Care Religious Educator Name Role Phone Unavailable Primary Care Provider [...] Only [facility] [place], [address] [place] [address] Josie Bynum from Last 3 [...] Visit [facility] [place], [address] [address] Arthur Doshi MD [address] [facility] [place] [phone] Health Maintenance Due Date Last Done Comments [...]
--- OUTSIDE RECORDS SUMMARY | 2025-01-13 08:50 | XMS_ITS | Encounter Summary ---
Author Organization [facility] Address [address] [place] [address] Phone Care Team Providers Care Torch Solderer Name Role Phone Unavailable Primary Care Provider Unavailabl e Encounter Details Date Type Department Care Team (Late st Contact Info) Description 03/02/2023 Documentation Only [facility] [address] [place] [address] Arthur Doshi MD [address] [facility] [place] [address] Social History Tobacco Use Types [...] Visit [facility] [address] [place] [address] Arthur Doshi MD [address] [facility] [place] [address] documented as of this encounter Visit Diagnoses Not on filedocumented in this encounter
--- OUTSIDE RECORDS SUMMARY | 2025-01-13 08:51 | XMS_ITS | Patient Health Record ---
Author Organization [facility] Address [address] [place] [address] Care Team Providers Care Neurology Technologist Name Role Phone Jessica JEAN, [facility] Primary Care Provider Beatrice Duffy Unavailable [phone] Allergies No Known Allergies Reason For Referral [...] Notes Problem Chronic kidney disease stage 4 (028730485) Chronic kidney disease (CKD) stage G4/A1, severely decreased glomerular filtration rate (GFR) between 15-29 mL/min/1.73 square meter and albuminuria creatinine ratio less than 30 mg/g (N18.4) Active confirmed Problem Chronic kidney disease due to hypertension ([id number] ) Hypertensive chronic kidney disease with stage 1 through stage 4 chronic kidney disease, or unspecified chronic kidney disease (I12.9) Active confirmed Problem Essential hypertension (70903815) Hypertension, unspecified type (I10) Active confirmed Plan [...] Insured Coverage Start Date Coverage End Date [facility] [address] [address] [facility] [place] [address] [id number] Juan C Tobar Self - patient is the insured Medical (General) History Medical History History ICD Code Renal failure, unspecified chronicity N1 9 Hypertension, unspecified type I10 Cerebrovascular accident (CVA), unspecif ied mechanism I63.9 Surgical History Surgery Date(Month/Year) Hysterectomy 2010
--- OUTSIDE RECORDS SUMMARY | 2025-01-13 08:51 | XMS_ITS | Encounter Summary ---
Author Organization [facility] [employer] Address [address] [place] [address] Phone Care Team Providers Care Picker Feeder Name Role Phone Unavailable Primary Care Provider Unavailabl e Reason for Visit * Reason Comments Med Refill Encounter Details Date Type Department Care Team (Late st Contact Info) Description 08/14/2024 Refill [facility] [address] [place] [address] Arthur Doshi MD [address] [place] [address] [place] [address] Social History Tobacco Use Types [...] [facility] [address] [place] [address] Arthur Doshi MD [address] [facility] [place] [address] documented as of this encounter Visit Diagnoses Not on filedocumented in this encounter
== END 2025-01-13 09:04 | disposition home or self-care (01) ==
PROVIDERS: PCP Family Medicine; Visit Provider Orthopaedic Surgery
DX: M25.561 Pain in right knee (principal); M25.562 Pain in left knee
CPT/HCPCS: 99203

== ENCOUNTER → 2025-01-13 08:31 | Outpatient (BNVA) | payer OTHER, SELFPAY | PROVIDERS: PCP Family Medicine; Visit Provider Orthopaedic Surgery | DX: M25.561 Pain in right knee (principal); M25.562 Pain in left knee | CPT/HCPCS: 99202 ==

== ENCOUNTER 2025-03-25 08:49 | Outpatient (AMB) | payer OTHER, SELFPAY ==
--- NOTE | 2025-03-25 09:07 | MHC.OFFVIS ---
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 No complaints. Last Pap/HPV was many years ago, the patient is status post hysterectomy for myomas and AUB with no history of abnormal Pap smears Last Mammogram was BI-RADS 3 in 11/11 Last Colonoscopy was in 2019, the recommendation was to repeat in 10 years [facility] Medical History Cardiac hypertrophy Obstructive sleep apnea Abnormal mammogram Daytime somnolence Non-restorative sleep CKD stage 4 secondary to hypertension Heart murmur Routine physical examination Chronic kidney disease Bilateral knee pain Arthritis of both knees Hypotension Surgical History H/O: hysterectomy No pertinent past surgical history Family History Father Hypertension No family history of mental disorder Mother Hypertension No family history of mental disorder Social History Household Members: Family Household Members Other:: Sister Housing: House Alcohol intake: never Patient Tobacco Use Status: Never used Tobacco e-Cigarette/Vaping Use: Never Used Second Hand Smoke Exposure: No service: No Current occupational status: employed 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 Cognitive needs: No Hearing needs: No Vision needs: Yes Female Reproductive History Menstrual Age of Menarche: 13 Date of Mammogram: 09/04/24 Review of Systems Const All systems reviewed & are unremarkable except as noted in HPI and below Card Reports as per HPI and Reports no additional complaints Resp Reports as per HPI and Reports no additional complaints GI Reports as per HPI and Reports no additional complaints Reports as per HPI Physical Exam Vital Signs: Last Vital Signs BP 146/92 H 03/25/25 09:10 BMI result Body Mass Index 30.6 Const General: cooperative, healthy appearing and comfortable General: Yes bladder normal to palpation External Female Exam: No lesion Speculum Exam - Vagina: normal appearance of the vagina, normal vaginal discharge and not erythematous Speculum Exam - Cervix: Cervix absent Bimanual exam- vagina & uterus: bladder normal to palpation and uterus absent Bimanual Exam- Adnexa, other: Other (No masses detected) Assessment & Plan Assessment & Plan (1) Well woman exam: Code(s): Z01.419 - Encounter for gynecological examination (general) (routine) without abnormal findings Category: Medical Plan: Co testing that indicated Counseled the patient about the recommended dietary allowance of 1200 mg of Calcium & 600 IU of vitamin D. Mammogram scheduled on 05/15/2025 The patient was instructed to perform monthly self-breast exams and schedule annual exam in a year. All questions answered and the patient verbalized understanding. Coding Level of Care Code Est Pt Prev Care 40-64y(15437) Diagnoses Well woman exam Z01.419
[2025-03-25 09:10] VITALS: BP 146/92; BMI 30.6
== END 2025-03-25 09:41 | disposition home or self-care (01) ==
LOC: HO.HWS 08:50
PROVIDERS: PCP Family Medicine; Visit Provider Obstetrics & Gynecology
DX: Z01.419 Encounter for gynecological examination (general) (routine) without abnormal findings (principal)
CPT/HCPCS: 99396; 99459

== ENCOUNTER → 2025-03-25 08:49 | Outpatient (BNVA) | payer OTHER, SELFPAY | PROVIDERS: PCP Family Medicine; Visit Provider Obstetrics & Gynecology | DX: Z01.419 Encounter for gynecological examination (general) (routine) without abnormal findings (principal) | CPT/HCPCS: 99396 ==